=== PATIENT | male | born 1985 | race Caucasian/White ===

== ENCOUNTER 2021-02-28 14:44 | Emergency (ER) | payer SELFPAY ==
[~2021-02-28] VITALS: Wt 86.2 kg
[~2021-02-28 14:44] MED LIST: ANTIVERT/2525 MG PO; CORTISPORIN SUS10 ML OT
== END 2021-02-28 16:30 | disposition home or self-care (01) ==
LOC: ED 14:44
DX: K62.89 Other specified diseases of anus and rectum (principal)